=== PATIENT | female | born 1995 | race Caucasian/White ===

== ENCOUNTER 2017-03-17 21:08 | Emergency (ER) | payer SELFPAY ==
[2017-03-17] MEDS ORDERED: CLINDAMYCIN HCL 150 MG CAPSULE PO ONE (23:58)
--- NOTE | 2017-03-18 00:01 | ER Document Report ---
HPI - HPI Patient complains to provider of: facial swelling Pain Level: 3 Context: Patient is a 22-year-old female comes emergency department for chief complaint of 2 days of worsening left-sided facial swelling. She states she has a known fracture where she had a feeling but the filling came out. She states she has not been able to get back to a dentist. She does not have dental insurance. She denies sore throat, fever, neck pain, or any other symptoms. LMP within the past month. - DERM Skin Color: Normal Past Medical History - General Information source: Patient - Social History Smoking Status: Never Smoker Drug Abuse: None Lives with: Family Family History: Reviewed & Not Pertinent Patient has suicidal ideation: No Patient has homicidal ideation: No - Medical History Medical History: Negative Renal/ Medical History: Denies: Hx Peritoneal Dialysis Surgical Hx: Negative - Immunizations Immunizations up to date: Yes Hx Diphtheria, Pertussis, Tetanus Vaccination: Yes Vertical Provider Document - CONSTITUTIONAL General Appearance: WD/WN, No Apparent Distress - INFECTION CONTROL TRAVEL OUTSIDE OF THE [place] IN LAST 30 DAYS: No - HEENT HEENT: Atraumatic, Normocephalic. negative: Normal ENT Exam - Left-sided facial swelling, dental caries noted without dental abscess, no lymphadenopathy , no subcutaneous swelling, no other abnormalities noted on ENT exam, Pharyngeal Exudate, Pharyngeal Tenderness Mouth Diagram: 1 - Dental caries - NECK Neck: Normal Inspection - RESPIRATORY Respiratory: Breath Sounds Normal, No Respiratory Distress O2 Sat by Pulse Oximetry: 100 - CARDIOVASCULAR Cardiovascular: Regular Rate, Regular Rhythm - GI/ABDOMEN Gastrointestinal: Abdomen Soft, Abdomen Non-Tender - BACK Back: Normal Inspection - MUSCULOSKELETAL/EXTREMETIES Musculoskeletal/Extremeties: MAEW, FROM, Non-Tender - NEURO Level of Consciousness: Awake, Alert, Appropriate Course - Re-evaluation Re-evalutation: Patient denying any pain, states she is here for antibiotics. Placed on clindamycin, referring to dental clinic, discussed return precautions, patient states understanding and agreement. - Vital Signs Vital signs: Temp Pulse Resp BP Pulse Ox 98.0 F 86 16 118/81 100 03/17/17 21:37 03/17/17 21:37 03/17/17 21:37 03/17/17 21:37 03/17/17 21:37 Discharge - Discharge Clinical Impression: Facial swelling, Dental infection Condition: Stable Disposition: HOME, SELF-CARE Additional Instructions: Your examination is consistent with a dental infection and facial swelling from this. Please take the antibiotics as prescribed to completion. Follow-up with the dental referral to prevent this from happening again. Return to emergency department if you worsen including increased facial swelling or any other concerning symptoms. Prescriptions: Clindamycin HCl [Cleocin 150 mg Capsule] 150 mg PO Q6 #56 capsule Forms: Return to Work Referrals: [facility] [Provider Group] - Follow up as needed
[2017-03-18 00:19] VITALS: BP 115/76
== END 2017-03-18 00:20 | disposition home or self-care (01) ==
LOC: ER 21:08
DX: K04.7 Periapical abscess without sinus (principal); K02.9 Dental caries, unspecified; R22.0 Localized swelling, mass and lump, head
CPT/HCPCS: 99283

== ENCOUNTER 2017-11-22 11:47 | Emergency (ER) | payer SELFPAY ==
[2017-11-22 11:55] VITALS: BP 130/85
--- NOTE | 2017-11-22 12:40 | ER Document Report ---
HPI - HPI Patient complains to provider of: dental abscess Onset: Yesterday Onset/Duration: Gradual Quality of pain: Achy Pain Level: 4 Context: 22 yo female c/o toothache and swelling. No fever. Associated Symptoms: None Exacerbated by: Denies Relieved by: Denies - ROS ROS below otherwise negative: Yes Systems Reviewed and Negative: Yes All other systems reviewed and negative Past Medical History - General Information source: Patient - Social History Smoking Status: Current Every Day Smoker Chew tobacco use (# tins/day): No Frequency of alcohol use: Occasional Drug Abuse: Marijuana Lives with: Family Family History: Reviewed & Not Pertinent Patient has suicidal ideation: No Patient has homicidal ideation: No Renal/ Medical History: Denies: Hx Peritoneal Dialysis Surgical Hx: Negative - Immunizations Immunizations up to date: Yes Hx Diphtheria, Pertussis, Tetanus Vaccination: Yes Vertical Provider Document - CONSTITUTIONAL Agree With Documented VS: Yes Exam Limitations: No Limitations General Appearance: No Apparent Distress - INFECTION CONTROL TRAVEL OUTSIDE OF THE [place] IN LAST 30 DAYS: No - HEENT Notes: left uper 2nd molar decay with abscess - NECK Neck: Supple. negative: Lymphadenopathy-Left, Lymphadenopathy-Right Course - Vital Signs Vital signs: Temp Pulse Resp BP Pulse Ox 98.6 F 73 16 130/85 H 11/22/17 11:54 11/22/17 11:54 11/22/17 11:54 11/22/17 11:54 Discharge - Discharge Clinical Impression: Left upper second molar abscess Condition: Good Disposition: HOME, SELF-CARE Instructions: [facility], Dentist, Dental Infection or Abscess ( [facility]), Penicillin V K ([facility]), Toothache ([facility]), Warm Packs ([facility]) Additional Instructions: Warm compress See the dentist Return to the emergency room if symptoms worsen Prescriptions: Ibuprofen [Motrin 800 mg Tablet] 800 mg PO Q8HP PRN #30 tablet PRN Reason: Penicillin V Potassium [Penicillin Vk 500 mg Tablet] 500 mg PO QID #40 tablet
[2017-11-22] MEDS ORDERED: LIDOCAINE 2% VISCOUS SOLN 20 ML UDCUP PO ONE (12:46)
== END 2017-11-22 12:59 | disposition home or self-care (01) ==
LOC: ER 11:47
DX: K04.7 Periapical abscess without sinus (principal); F17.200 Nicotine dependence, unspecified, uncomplicated
CPT/HCPCS: 99282; J3490

== ENCOUNTER → 2018-09-08 | Outpatient (CLI) | payer MEDICAID ==
--- NOTE | 2018-09-08 12:09 | RADIOLOGY REPORT (SQ) ---
EXAM DESCRIPTION: U/S OB 14+ TRNABD 1GES W/O DOP COMPLETED DATE/TIME: 09/08/2018 11:30 am REASON FOR STUDY: Z34.83 Z34.83 ENCOUNTER FOR SUPRVSN OF NORMAL , THIRD TRIM COMPARISON: None. TECHNIQUE: Static and Dynamic grayscale imaging performed of gravid uterus using transabdominal appr oach. Additional selected color Doppler and spectral images recorded. All stored on PACS. LIMITATIONS: None. FINDINGS: FETUSES SEEN:1 EGA: 34 weeks 2 days Calculated using BPD,FL,HC,AC documented on images. No discrepancy with clinica l dates. ALICE: 10/18/2018 EFW: 2628 grams +/- 389 grams PERCENTILE: 46 FRANCES: 14.4 PLACENTA: Posterior to the left PRESENTATION: Cephalic. ANATOMY: HEART RATE: 130 beats per minute. FOUR CHAMBER HEART: Visualized. THREE VESSEL CORD: Yes. CORD INSERTION: Visualized. KIDNEYS AND BLADDER: Visualized. Appear normal. STOMACH: Visualized. Appears normal. SPINE: Normal as visualized. BRAIN AND LATERAL VENTRICLES: The cerebellum and cisterna magna were not visualized due to shadowing from the calvarium. OTHER: No other significant finding. MATERNAL ADNEXA: Maternal ovaries not visualized. CERVICAL LENGTH: Not applicable. Greater than 20 weeks. Need transvaginal study if indicated. Close d. OTHER: No other significant finding. IMPRESSION: LIVING INTRAUTERINE . ESTIMATED GESTATIONAL AGE 34 weeks 2 days NO VISUALIZED ANOMALIES. Trimester of : Third trimester - 28 weeks to delivery. TECHNICAL DOCUMENTATION: JOB ID: [id number] [employer]- All Rights Reserved Reading location - IP/workstation name: [email or web address]
== END ==
LOC: RAD 10:12
PROVIDERS: ATTEND Midwife
DX: Z34.83 Encounter for supervision of other normal pregnancy, third trimester (principal)
CPT/HCPCS: 76805

== ENCOUNTER 2018-10-01 04:12 | Inpatient (IN) | payer MEDICAID ==
[2018-10-01] MEDS ORDERED: OXYTOCIN/NORMAL SALINE 20 UNIT/1,000 ML RTUINJ ONE (04:24)
[2018-10-01] MEDS ORDERED: MISOPROSTOL 0.2 MG TABLET ONE (04:24)
[2018-10-01] MEDS ORDERED: LIDOCAINE 1% INJ-PF (10 MG/ML) 30 ML SDV ONE (04:24)
[2018-10-01] MEDS ORDERED: OXYTOCIN 10 UNIT/ML VIAL ONE ×2 (04:24→04:31)
[2018-10-01 05:18] LABS: ABSOLUTE LYMPHOCYTES (AUTO) 1.7 10^3/uL (0.5-4.7); ABSOLUTE MONOCYTES (AUTO) 0.6 10^3/uL (0.1-1.4); ABSOLUTE NEUT (AUTO) 12.8 10^3/uL (1.7-8.2); BASOPHILS % (AUTO) 0.1 % (0-2); EOSINOPHILS % (AUTO) 0.3 % (0-6); HEMATOCRIT 34.2 % (36.0-47.0); HEMOGLOBIN 11.6 g/dL (12.0-15.5); LYMPHOCYTES % (AUTO) 11.3 % (13-45); MEAN CORPUSCULAR HEMOGLOBIN 32.9 pg (27.0-33.4); MEAN CORPUSCULAR HGB CONC 33.9 g/dL (32.0-36.0); MEAN CORPUSCULAR VOLUME 97 fl (80-97); MONOCYTES % (AUTO) 4.1 % (3-13); RED BLOOD COUNT 3.52 10^6/uL (3.72-5.28); RED CELL DISTRIBUTION WIDTH 13.6 % (11.5-14.0); SEGMENTED NEUTROPHILS % (AUTO) 84.2 % (42-78); TOTAL CELLS COUNTED % (AUTO) 100 %; WHITE BLOOD COUNT 15.2 10^3/uL (4.0-10.5)
[2018-10-01] MEDS ORDERED: RINGERS SOLUTION,LACTATED 1,000 ML IV ONE (05:20)
[2018-10-01] MEDS ORDERED: RINGERS SOLUTION,LACTATED 1,000 ML IV PRN (05:20)
--- NOTE | 2018-10-01 05:20 | Admission Physical ---
Datetime Report Generated by CPN: 10/01/2018 05:20 CURRENT ADMISSION Chief Complaint: Uterine Contractions; Suspected Ruptured Membranes Chief Complaint Other: SROM at 0300 Indication for Induction: Not Applicable Admit Impression : Term, Intrauterine ; Active Labor; Ruptured Membranes Admit Plan: Admit to Unit; Initiate Labor Protocol ALLERGIES Medication Allergies: No Medication Allergies: No Known Allergies (11/22/2017) Latex: No Latex Allergies OBSTETRICAL HISTORY EDC: 10/18/2018 00:00 : 2 Para: 0 Term: 0 : 0 SAB: 0 IAB: 0 Ectopic: 0 Livin Cesareans: 0 VBACs: 0 Multiple Births: 0 SEE RECORDS Cigarettes: Current Everyday Smoker. [id number] PHYSICAL EXAM General: Normal HEENT: Normal Neurologic: Normal Thyroid: Deferred Heart: Normal Lungs: Normal Breast: Deferred Back: Normal Abdomen: Normal Genitourinary Exam: Normal Extremities: Normal DTRs: Normal Pelvic Type: Adequate Vital Signs: Reviewed VAGINAL EXAM Dilatation: 10 Effacement: 100 Station: 2 Contraction Comments: q 2-3 MEMBRANES Membranes: Ruptured Amniotic Fluid Color: Meconium, Light FETUS A EGA: 37.4 Monitoring: External US FHR- Baseline: 125 Variability: Moderate 6-25bpm Accelerations: 15X15 Decelerations: None FHR Category: Category I Presentation: Vertex Admit Comment: 23yo at 37+4ega presents at Al/c/+2 station. Late to care at 34wks. Dated by 34 wks US. Admit to labor and delivery. Pt delivered quickly after admission. only had 2 visits. landscape architect and planner placed. Still needs Urine sample for UDS. PLANS FOR LABOR AND DELIVERY Feeding Preference: Breast Benefit of Breast Feed Discussed: Yes INFORMED CONSENT Informed Consent Obtained: Vaginal Delivery; Risks, Benefits and Alternatives Discussed Signature: with User ID: [email or web address]
[2018-10-01] MEDS ORDERED: OXYTOCIN/NORMAL SALINE 20 UNIT/1,000 ML RTUINJ IV PRN (05:21)
[2018-10-01] MEDS ORDERED: MEASLES,MUMPS&RUBELLA VACC/PF 0.5 ML VIAL SUBCUT PRN ×2 (05:21→16:00)
[2018-10-01] MEDS ORDERED: ACETAMINOPHEN WITH CODEINE #3 TABLET PO PRN ×2 (05:21)
[2018-10-01] MEDS ORDERED: BENZOCAINE/MENTHOL AEROSOL SPRAY 56 ML TOP PRN (05:21)
[2018-10-01] MEDS ORDERED: ZOLPIDEM TARTRATE 5 MG TABLET PO PRN (05:21)
[2018-10-01] MEDS ORDERED: PROMETHAZINE HCL 25 MG SUPP.RECT PR PRN (05:21)
[2018-10-01] MEDS ORDERED: DIPHENHYDRAMINE HCL 25 MG CAPSULE PO PRN (05:21)
[2018-10-01] MEDS ORDERED: MAGNESIUM HYDROXIDE SUSP 30 ML UDCUP PO PRN (05:21)
[2018-10-01] MEDS ORDERED: ACETAMINOPHEN 325 MG TABLET PO PRN (05:21)
[2018-10-01] MEDS ORDERED: GLYCERIN/WITCH HAZEL LEAF 1 EACH MED..WIPE TP PRN (05:21)
[2018-10-01] MEDS ORDERED: PSEUDOEPHEDRINE HCL 30 MG TABLET PO PRN (05:21)
[2018-10-01] MEDS ORDERED: PROMETHAZINE HCL INJ 25 MG/1 ML VIAL IV PRN ×2 (05:21→16:00)
[2018-10-01] MEDS ORDERED: DIBUCAINE 1% OINTMENT 56 GM TP PRN (05:21)
[2018-10-01] MEDS ORDERED: NA PHOS,M-B/NA PHOS,DI-BA (ADULT) 133 ML ENEMA PR PRN (05:21)
[2018-10-01] MEDS ORDERED: PROMETHAZINE HCL 25 MG TABLET PO PRN (05:21)
[2018-10-01] MEDS ORDERED: DIPH/PERTUSS(ACELL)/TETANUS VAC/PF 0.5 ML SYR (>=10YO) IM PRN ×2 (05:21→15:30)
[2018-10-01 05:34] LABS: PLATELET COUNT 84 10^3/uL (150-450)
--- NOTE | 2018-10-01 06:02 | Delivery Summary ---
Del Sum A-C Datetime Report Generated by CPN: 10/01/2018 06:02 DELIVERY PERSONNEL DELIVERY PERSONNEL: [id number] Delivery Doctor:: Jamee Sue MD Labor and Delivery Nurse:: Carmita Carlos RNcharging machine operator Nurse:: Jane Berman RN Nursery Nurse:: Mali Trejo RN Foam Gun Operator/HEAD OF HISTORY: Kyra Palacios, ST MATERNAL INFORMATION Delivery Anesthesia: None Medications After Delivery: Pitocin Drip 20 Units/1000ml NSS Estimated Blood Loss (ml): 100 Maternal Complications: Precipitous Labor (<3hrs); Other Complication Details: limited care Provider Comments: VFI delivered in ATTILA presentation. No nuchal cord. Shoulders and body delivered without difficulty. Cord doubly clamped and cut and to maternal abdomen for NRP. Placenta delivered spontanesously intact. RIght labial and periclitoral laceration repaired in usual fashion. FF at U. Mother and baby stable upon provider leaving the room. LABOR SUMMARY EDC: 10/18/2018 00:00 No. Babies in Womb: 1 Attempted: No Labor Anesthesia: None LABOR INFORMATION Reason for Induction: Not Applicable Onset of Labor: 10/01/2018 03:00 Complete Dilatation: 10/01/2018 04:26 Oxytocin: N/A Group B Beta Strep: negative Antibiotics # of Doses: N/A Antibiotics Time of Last Dose: N/A Name of Antibiotic Given: N/A Steroids Given: None Reason Steroids Not Administered: Not Applicable MEMBRANES Membranes Rupture Method: Spontaneous Rupture of Membranes: 10/01/2018 03:00 Length of Rupture (hr): 1.73 Amniotic Fluid Color: Moderate Meconium Amniotic Fluid Amount: Moderate Amniotic Fluid Odor: Normal STAGES OF LABOR Stage 1 hr: 1 Stage 1 min: 26 Stage 2 hr: 0 Stage 2 min: 18 Stage 3 hr: 0 Stage 3 min: 1 Total Time in Labor hr: 1 Total Time in Labor min: 45 VAGINAL DELIVERY Episiotomy: None Laceration #1: Perineal Laceration Extension #1: N/A Laceration Repair: Yes Laceration Repair Note: periclitoral and right labial laceration repaired for hemostasis Sponge Count Correct: Yes Sharps Count Correct: Yes CSECTION DELIVERY Primary Indication: N/A Secondary Indication: N/A CSection Incidence: N/A Labor: N/A Elective: N/A BABY A INFORMATION Delivery Date/Time: 10/01/2018 04:44 Method of Delivery: Vaginal Born in Route : No : N/A Forceps: N/A Vacuum Extraction: N/A Shoulder Dystocia : No PRESENTATION/POSITION BABY A Presentation: Cephalic Cephalic Presentation: Vertex Vertex Position: Right Occipital Anterior Breech Presentation: N/A PLACENTA INFORMATION BABY A Placenta Delivery Time : 10/01/2018 04:45 Placenta Method of Delivery: Spontaneous Placenta Status: Delivered SCORES BABY A Heart Rate 1 min: >100 bpm Resp Effort 1 min: Good Cry Reflex Irritability 1 min: Cough or Sneeze or Pulls Away Muscle Tone 1 min: Active Motion Color 1 min: Body [place], Extremities Blue SCORE 1 MIN: 9 Heart Rate 5 min: >100 bpm Resp Effort 5 min: Good Cry Reflex Irritability 5 min: Cough or Sneeze or Pulls Away Muscle Tone 5 min: Active Motion Color 5 min: Body [place], Extremities Blue SCORE 5 MIN: 9 INFORMATION BABY A Gestational Age at Delivery: 37.4 Gestational Status: Early Term- 37- 38.6 Weeks Infant Outcome : Liveborn Condition : Stable Sex: Female IDENTIFICATION BABY A Verification Date/Time: 10/01/2018 05:12 ID Band Number: [id number] Mother's Name Verified: Yes RN Verifying : E. Bluelek RN/ M. Narciso RN WEIGHT/LENGTH BABY A Infant Birthweight (gm): 2789 Weight (lb): 6 Weight (oz): 2 Infant Length (in): 18.50 Infant Length (cm): 46.99 CORD INFORMATION BABY A No. Cord Vessels: 3 Nuchal Cord : N/A Cord Blood Taken: Yes-For Eval (Mom's Blood Type - or O+) Suction: None ASSESSMENT BABY A Skin to Skin: Yes Skin to Skin Time (min): 60 BABY B INFORMATION : N/A SIGNATURES Signature: with User ID: [email or web address]
[2018-10-01 07:01] LABS: APPEARANCE,URINE CLOUDY; BILIRUBIN,URINE NEGATIVE (NEGATIVE); COLOR,URINE RED; GLUCOSE, URINE NEGATIVE (NEGATIVE); KETONES,URINE TRACE mg/dL (NEGATIVE); LEUKOCYTE ESTERASE,URINE TRACE (NEGATIVE); NITRITE,URINE NEGATIVE (NEGATIVE); PROTEIN,URINE 100 mg/dL (NEGATIVE); URINE SPECIFIC GRAVITY 1.005; UROBILINOGEN,URINE NEGATIVE mg/dL (<2.0)
[2018-10-01 07:17] LABS: URINE AMPHETAMINES SCREEN NEGATIVE; URINE BARBITURATES SCREEN NEGATIVE; URINE BENZODIAZEPINES SCREEN NEGATIVE; URINE COCAINE SCREEN NEGATIVE; URINE MARIJUANA (THC) SCREEN NEGATIVE; URINE METHADONE SCREEN NEGATIVE; URINE PHENCYCLIDINE SCREEN NEGATIVE
[2018-10-01] MEDS: IBUPROFEN 800 MG TABLET PO SCH ×3 (08:30→21:28)
[2018-10-01] MEDS: FERROUS SULFATE 325 MG TABLET PO SCH ×2 (09:40→17:16)
[2018-10-01] MEDS: FAMOTIDINE 20 MG TABLET PO SCH ×2 (09:40→21:28)
[2018-10-01] MEDS: PRENATAL VITAMIN W DHA CAPSULE PO SCH (09:40)
[2018-10-01] MEDS: DOCUSATE SODIUM 100 MG CAPSULE PO SCH ×2 (09:40→17:16)
[2018-10-01] MEDS: SENNOSIDES/DOCUSATE 8.6-50 MG 1 EACH TABLET PO SCH (09:41)
[2018-10-02 07:39] LABS: HEMATOCRIT 30.6 % (36.0-47.0); HEMOGLOBIN 10.7 g/dL (12.0-15.5); MEAN CORPUSCULAR HEMOGLOBIN 33.5 pg (27.0-33.4); MEAN CORPUSCULAR VOLUME 96 fl (80-97); RED BLOOD COUNT 3.19 10^6/uL (3.72-5.28); RED CELL DISTRIBUTION WIDTH 13.1 % (11.5-14.0); WHITE BLOOD COUNT 10.9 10^3/uL (4.0-10.5)
[2018-10-02 08:20] LABS: PLATELET COUNT 76 10^3/uL (150-450)
[2018-10-02] MEDS: PRENATAL VITAMIN W DHA CAPSULE PO SCH (09:37)
[2018-10-02] MEDS: FAMOTIDINE 20 MG TABLET PO SCH ×2 (09:37→22:52)
[2018-10-02] MEDS: FERROUS SULFATE 325 MG TABLET PO SCH ×2 (09:37→17:26)
[2018-10-02] MEDS: SENNOSIDES/DOCUSATE 8.6-50 MG 1 EACH TABLET PO SCH (09:37)
[2018-10-02] MEDS: DOCUSATE SODIUM 100 MG CAPSULE PO SCH ×2 (09:37→17:26)
--- NOTE | 2018-10-02 09:42 | PDOC PROGRESS REPORT ---
Subjective-OB Progress Note for:: 10/02/18 - PP Day #1, doing well, no complaints, , O+, Rubella immune, Physical Exam (OB) Vital Signs: Temp Pulse Resp BP Pulse Ox 97.6 F 68 17 114/69 99 10/02/18 07:43 10/02/18 07:43 10/02/18 07:43 10/02/18 07:43 10/02/18 07:43 Intake & Output 10/01/18 10/02/18 10/03/18 06:59 06:59 06:59 Intake Total 500 Balance 500 Weight 62.6 kg - General General Appearance: Appears well, Alert In distress: None - PIH/Pre-Eclampsia Clonus: Negative Headache: Absent Epigastric Pain: No Visual Changes: No - Lochia Lochia Amount: Small 10-25 ml Lochia Color: Rubra/Red - Abdomen Description: Soft, Round Fundal Description: Firm, Midline Fundal Height: u/u - u/2 - Respiratory Respiratory Status: No respiratory distress - Abdominal Distension: No distension - Genitourinary Genitourinary Note: voiding - Extremities Upper extremity: Normal inspection Lower extremities: Normal inspection - Neurological Cognition: Normal Orientation: AAOx4 - Psychological Associated symptoms: Normal affect, Normal mood - Skin Skin Temperature: Warm Skin Moisture: Dry Objective-Diagnostic Laboratory: 10/02/18 06:21 10/02/18 06:21 WBC 10.9 H RBC 3.19 L Hgb 10.7 L Hct 30.6 L MCV 96 MCH 33.5 H MCHC 35.0 RDW 13.1 Plt Count 76 L Assessment and Plan(PN) - Assessment and Plan (1) Late care complicating Qualifiers: Trimester: unspecified trimester Qualified Code(s): O09.30 - Supervision of with insufficient care, unspecified trimester Is this a current diagnosis for this admission?: Yes (2) Meconium in amniotic fluid Is this a current diagnosis for this admission?: Yes (3) Obstetric labial laceration, delivered, current hospitalization Is this a current diagnosis for this admission?: Yes (4) Poor patient attendance of care Is this a current diagnosis for this admission?: Yes (5) Precipitate labor, delivered, current hospitalization Is this a current diagnosis for this admission?: Yes (6) Vaginal delivery Is this a current diagnosis for this admission?: Yes - Time Spent with Patient Time with patient: Less than 15 minutes Medications reviewed and adjusted accordingly: Yes - Disposition Anticipated Discharge: Home Within: within 24 hours
[2018-10-03 08:10] VITALS: BP 105/67
--- NOTE | 2018-10-03 09:31 | PDOC DISCHARGE SUMMARY ---
Final Diagnosis Discharge Date: 10/03/18 - Day #2, doing well, no complaints, O+, Rubella Immune, - Final Diagnosis (1) Late care complicating Is this a current diagnosis for this admission?: Yes (2) Meconium in amniotic fluid Is this a current diagnosis for this admission?: Yes (3) Obstetric labial laceration, delivered, current hospitalization Is this a current diagnosis for this admission?: Yes (4) Poor patient attendance of care Is this a current diagnosis for this admission?: Yes (5) Precipitate labor, delivered, current hospitalization Is this a current diagnosis for this admission?: Yes (6) Vaginal delivery Is this a current diagnosis for this admission?: Yes Discharge Data - Discharge Medication Home Medications: Prenat 115/Iron Fum/Folic/Dss [ 19 Tablet] 1 tab PO DAILY 10/01/18 Reason(s) for Admission: Onset of Labor Intrapartum Procedure(s): Spontaneous Vaginal Delivery Complication(s): Other - periurethral - Diagnosis Test Laboratory: Temp Pulse Resp BP Pulse Ox 97.6 F 66 18 105/67 99 10/03/18 08:44 10/03/18 08:44 10/03/18 08:44 10/03/18 07:26 10/03/18 08:44 10/01/18 10/01/18 10/02/18 04:55 06:50 06:21 RBC 3.52 L 3.19 L Hgb 11.6 L 10.7 L Hct 34.2 L 30.6 L Urine Opiates Screen NEGATIVE - Discharge information/Instructions Discharge Activity: Activity As Tolerated, No Lifting Over 10 Pounds, No Lifting /Push/Pulling, Pelvic Rest Discharge Diet: As Tolerated, Regular Disposition: HOME, SELF-CARE Follow [facility] with: [facility] in: 4, Weeks
[2018-10-03] MEDS: SENNOSIDES/DOCUSATE 8.6-50 MG 1 EACH TABLET PO SCH (09:57)
[2018-10-03] MEDS: PRENATAL VITAMIN W DHA CAPSULE PO SCH (09:57)
[2018-10-03] MEDS: FAMOTIDINE 20 MG TABLET PO SCH (09:58)
[2018-10-03] MEDS: FERROUS SULFATE 325 MG TABLET PO SCH (09:58)
[2018-10-03] MEDS: DOCUSATE SODIUM 100 MG CAPSULE PO SCH (09:58)
== END 2018-10-03 12:55 | disposition home or self-care (01) | DRG 807 ==
LOC: LC 04:12 → LR 04:32 → 2S 08:20
PROVIDERS: ADMIT Student in an Organized Health Care Education/Training Program; ATTEND Student in an Organized Health Care Education/Training Program
PROC: 10E0XZZ Delivery of Products of Conception, External Approach (ICD-10-PCS; principal; 2018-10-01)
PROC: 0UQMXZZ Repair Vulva, External Approach (ICD-10-PCS; 2018-10-01)
DX: O62.3 Precipitate labor (principal); Z37.0 Single live birth; O99.334 Smoking (tobacco) complicating childbirth; F17.210 Nicotine dependence, cigarettes, uncomplicated; O77.0 Labor and delivery complicated by meconium in amniotic fluid; O70.0 First degree perineal laceration during delivery; Z3A.37 37 weeks gestation of pregnancy
CPT/HCPCS: 36415; 80307; 81005; 85025; 85027; 86592; 86850; 86900; 86901; 88307; J2590; J3490